=== PATIENT | female | born 2000 | race African-American/Black ===

== ENCOUNTER 2021-07-25 11:03 | Observation (INO) | payer MEDICAID, OTHER ==
[~2021-07-25] VITALS: Ht 160 cm; Wt 57.2 kg
[2021-07-25] MEDS ORDERED: LACTATED RINGERS 1,000 ML IV ONE (12:00)
[2021-07-25] MEDS: TERBUTALINE SULFATE 1MG/ML VIAL SUBCUT PRN ×2 (12:13→12:36)
[2021-07-25 13:08] LABS: CLARITY URINE CLEAR (CLEAR); COLOR URINE YELLOW (YELLOW); KETONES URINE NEGATIVE (NEGATIVE); LEUKOCYTE ESTERASE URINE NEGATIVE (NEGATIVE); NITRITE URINE NEGATIVE (NEGATIVE); OCCULT BLOOD URINE NEGATIVE (NEGATIVE); PH URINE 7.5 (4.5-8.0); PROTEIN URINE NEGATIVE (NEGATIVE); SPECIFIC GRAVITY URINE 1.008 (1.005-1.030); UROBILINOGEN URINE 0.2 E.U./dL (0.2-1.0)
== END 2021-07-25 14:05 | disposition home or self-care (01) ==
LOC: 8 EST LDRP 11:03
PROVIDERS: ADMIT Specialist; ATTEND Specialist
DX: O62.9 Abnormality of forces of labor, unspecified (principal); Z3A.37 37 weeks gestation of pregnancy
CPT/HCPCS: 59025; 76805; 76818; 81003; 96360; 96361; 96372; G0378; J3105; 99281